=== PATIENT | female | born 1960 | race Caucasian/White ===

== ENCOUNTER 2024-08-20 17:11 | Emergency (ER) | payer OTHER, SELFPAY ==
[2024-08-20] VITALS (43 sets, daily range): BP systolic 90–178; BP diastolic 51–100; PULSE 58–77; RESP 9–35; TEMP 36.6; O2SAT 91–100
--- NOTE | 2024-08-20 17:21 | DI.RAD.S_ITS ---
PROCEDURE: XR TIBIA FUBULA RT 2V INDICATIONS: obvious deformity right ankle TECHNIQUE: 2 views of the tibia and fibula were acquired. COMPARISON: None. FINDINGS: Bones: Diffuse osteopenia. Visualized portions of the right knee appear intact. Degenerative changes of the right knee. Fracture dislocation of the distal fibula and tibia with lateral dislocation of the talus relative to the tibiotalar joint. There is disruption of the ankle mortise. There is a suspected fracture of the posterior calcaneus. Medial malleolar fracture. Soft tissues: No suspicious soft tissue calcifications or masses. IMPRESSION: Fracture, dislocation of the right ankle with lateral dislocation of the talus relative to the tibiotalar joint. There is disruption of the ankle mortise. Fractures of the lateral and medial malleolus. Suspected fracture of the posterior calcaneus. Dictated by: Malik Newsome M.D. on 08/20/2024 at 18:56 Approved by: Malik Newsome M.D. on 08/20/2024 at 18:58
--- NOTE | 2024-08-20 17:21 | DI.RAD.S_ITS ---
PROCEDURE: XR ANKLE RT MIN 3V INDICATIONS: obvious deformity right ankle TECHNIQUE: 3 views of the ankle were acquired. COMPARISON: None. FINDINGS: Bones: Diffuse osteopenia. Fracture dislocation of the distal right fibula and tibia. The talus is displaced laterally. Medial malleolar fracture. Possible fracture of the posterior calcaneus. Soft tissues: No tibiotalar joint effusion. Achilles tendon appears normal. IMPRESSION: Fracture dislocation of the right ankle with fractures involving the distal right fibula and medial malleolus. Lateral dislocation of the talus relative to the distal tibia. There is disruption of the ankle mortise. Possible fracture of the calcaneus. Dictated by: Malik Newsome M.D. on 08/20/2024 at 18:42 Approved by: Malik Newsome M.D. on 08/20/2024 at 18:44
--- NOTE | 2024-08-20 18:51 | ED.LOWEXIN ---
HPI - Extremity Injury (Lower) General Chief Complaint: Extremity Injury, Lower Stated Complaint: R ankle Fx Time Seen by Provider: 08/20/24 18:51 Source: EMS Mode of arrival: EMS History of Present Illness HPI Narrative: 63-year-old female history of diabetes, prior KELLY, dementia who presents with complaint of right ankle pain after a ground level fall. Patient currently lives in a memory care facility. Patient main complaint is her IV but does have pain in her ankle. She denies any other injuries or pain. She was alert, oriented can tell me her name. Denies any headache, no back pain, no chest pain or shortness of breath denies any other GI or urinary symptoms. She does not think that she was any allergies to medications. She denies any numbness or tingling in her foot. She was able to wiggle her toes. She does not recall the exact mechanism. Also spoke with the patient's ex- who is also her DPOA she was EN route but had [place] the [place]. Gives verbal permission for procedural sedation and reduction. Related Data Previous Rx's Medication Instructions Recorded hydrocodone 5 mg-acetaminophen 325 1 tab PO Q6H PRN pain #10 tabs 08/20/24 mg tablet Allergies Allergy/AdvReac Type Severity Reaction Status Date / Time bee pollen Allergy Verified 08/20/24 17:20 Review of Systems Review of Systems ROS Unobtainable: All systems reviewed & are unremarkable except as noted in HPI and below Exam Narrative Exam Narrative: GEN: Patient appears in mild distress. She was alert, oriented to self. Conversant but confused. HEAD: No evidence of trauma, no raccoon/[place]a sign. NECK: Nontender, painless range of motion, trachea midline Negative Nexus criteria, no mental line tenderness, distracting injury, altered mental status, neuro deficit, recent EtOH. EYES: PERRLA, EOMI ENT: External inspection normal, trachea is midline, TM's are normal no hemotypanum, Nares are clear, no septal hematoma, no dental or oral injury, airway is normal and with normal occlusion, No bony tenderness RESP: Chest is nontender and has symmetric movement, no ecchymosis, breath sounds are normal no crackles, wheezes or rales CVS: Heart sounds are normal, no murmur noted, No JVD. ABG/GI: Nontender, soft, normal bowel sounds, no distention, no organomegaly, pelvic rock is negative NEURO: neuro is grossly intact, sensation and motor is normal all 4 extremities moving, cranial nerves II through XII are intact. PSYCH: Normal mood and affect SKIN: Intact, warm and dry, no crepitus and without decubitus BACK: No CVA tenderness, no vertebral tenderness, no step-off's, no crepitus EXT: Patient has a obvious deformity of the right ankle with eversion, there has not abrasion over the medial ankle, tenting, no other bony tenderness to the toes. No bony tenderness of the ankle or hip. Patient does have a palpable pulse at dorsalis. Sensation is intact. She can wiggle all of her toes. No pain in the knee, hip. Patient has good range of motion of all of her other extremities. Hips are nontender, no pedal edema, normal color and temperature. Initial Vital Signs Initial Vital Signs: Vital Signs Temperature 97.8 F 08/20/24 17:16 Pulse Rate 59 L 08/20/24 17:16 Respiratory Rate 12 08/20/24 17:16 Blood Pressure 149/70 H 08/20/24 17:16 Pulse Oximetry 99 08/20/24 17:16 Oxygen Delivery Method Room Air 08/20/24 17:16 Procedures Orthopedic Fracture Reduction Fracture #1: Time Out Performed: Yes Side: right Fracture Reduction Location: other (ankle) Analgesia: procedural sedation Technique: direct manipulation and traction/counter-traction Post-reduction neuro exam: intact and no change Post-reduction vascular exam: intact and no change Splint Applied: Yes Patient Tolerated Procedure: Well and No complications Additional Comments: Patient had talus still too posterior. Patient had a repeat procedural sedation and had splint replaced by myself and nursing after direct manipulation improvement in imaging she was also reviewed with the orthopedic surgery. Procedural Sedation Consent signed: No Time out performed: Yes ASA Class: II Mallampati Airway Classification: Class II Time of Last PO Intake: 15:00 (pt unsure has dementia) Preparation: case monitor applied, pulse oximeter, capnometry used, supplemental O2 applied, suction/airway equipment at bedside and IV secured IV Propofol dose (mg): 40 ED Sedation Level: Moderate (Concious) Patient Tolerated Procedure: Well and No complications Complications: none Additional Comments: Patient had verbal consent from her DPOA Ciera to patient has pretty severe dementia. Her DPOA is EN route but not here currently. Patient had to have 2nd procedural sedation, she had returned to baseline in between had an additional 40mg and then additional 20mg for total of 60mg with second sedation. After consent from her DPOA who had arrived by that time. Patient had moderate sedation. No complications. Patient was on monitor with pulse oximetry, capnography, supplemental O2 and suction and airway equipment at bedside and IV was secured. Course Orders Ordered: ED Orders 08/20/24 19:53 XR ankle RT min 3V Stat 08/20/24 21:49 XR ankle RT 2V Stat 08/20/24 22:01 CT LE RT wo con Stat 08/20/24 23:35 Consult to [facility] - Clinical Nurse Reviewer Stat Discontinued Medications Propofol (Propofol 200 Mg/20 Ml Vial) 65 mg 1 mg/kg (65 mg) IV NOW ONE Stop: 08/20/24 18:56 Last Admin: 08/20/24 19:33 Dose: 40 mg Documented By: AMAUYR Propofol (Propofol 200 Mg/20 Ml Vial) 65 mg 1 mg/kg (65 mg) IV NOW ONE Stop: 08/20/24 20:58 Last Admin: 08/20/24 21:54 Dose: 60 mg Documented By: AMAURY Vital Signs Vital signs: Vital Signs - 8 hr 08/20/24 19:55 08/20/24 19:55 08/20/24 20:00 Pulse Rate 60 Respiratory Rate 11 L Blood Pressure 143/76 H 136/77 Pulse Oximetry 100 Oxygen Delivery Method 08/20/24 20:00 08/20/24 20:05 08/20/24 20:05 Pulse Rate 61 65 Respiratory Rate 10 L 22 Blood Pressure 150/81 H Pulse Oximetry 100 100 Oxygen Delivery Method 08/20/24 20:10 08/20/24 20:15 08/20/24 20:18 Pulse Rate 64 65 Respiratory Rate 13 18 Blood Pressure 171/77 H Pulse Oximetry 100 100 Oxygen Delivery Method 08/20/24 20:18 08/20/24 20:20 08/20/24 20:25 Pulse Rate 65 62 63 Respiratory Rate 16 10 L 16 Blood Pressure Pulse Oximetry 100 100 100 Oxygen Delivery Method 08/20/24 20:30 08/20/24 20:30 08/20/24 20:35 Pulse Rate 64 70 Respiratory Rate 14 21 Blood Pressure 172/81 H Pulse Oximetry 100 99 Oxygen Delivery Method 08/20/24 20:37 08/20/24 20:42 08/20/24 20:43 Pulse Rate 67 76 Respiratory Rate 18 Blood Pressure 174/87 H Pulse Oximetry 100 100 Oxygen Delivery Method 08/20/24 20:45 08/20/24 20:45 08/20/24 20:50 Pulse Rate 66 66 Respiratory Rate 10 L 18 Blood Pressure 178/79 H Pulse Oximetry 98 100 Oxygen Delivery Method 08/20/24 20:55 08/20/24 21:00 08/20/24 21:00 Pulse Rate 62 66 Respiratory Rate 16 21 Blood Pressure 176/82 H Pulse Oximetry 99 100 Oxygen Delivery Method 08/20/24 21:05 08/20/24 21:10 08/20/24 21:15 Pulse Rate 63 62 60 Respiratory Rate 15 12 20 Blood Pressure Pulse Oximetry 99 99 98 Oxygen Delivery Method 08/20/24 21:15 08/20/24 21:20 08/20/24 21:25 Pulse Rate 63 61 Respiratory Rate 20 13 Blood Pressure 171/79 H Pulse Oximetry 100 100 Oxygen Delivery Method 08/20/24 21:30 08/20/24 21:30 08/20/24 21:30 Pulse Rate 60 60 Respiratory Rate 18 11 L Blood Pressure 168/81 H 168/81 H Pulse Oximetry 98 100 Oxygen Delivery Method 08/20/24 21:35 08/20/24 21:35 08/20/24 21:35 Pulse Rate 61 64 Respiratory Rate 14 35 H Blood Pressure 150/86 H 151/100 H Pulse Oximetry 100 100 Oxygen Delivery Method 08/20/24 21:40 08/20/24 21:40 08/20/24 21:41 Pulse Rate 58 L 60 Respiratory Rate 13 12 Blood Pressure 135/89 135/89 Pulse Oximetry 100 100 Oxygen Delivery Method 08/20/24 21:45 08/20/24 21:45 08/20/24 21:45 Pulse Rate 64 60 Respiratory Rate 14 15 Blood Pressure 129/68 129/68 Pulse Oximetry 99 100 Oxygen Delivery Method 08/20/24 21:50 08/20/24 21:55 08/20/24 22:00 Pulse Rate 65 64 60 Respiratory Rate 22 Blood Pressure Pulse Oximetry 99 Oxygen Delivery Method 08/20/24 22:01 08/20/24 22:01 08/20/24 22:04 Pulse Rate 60 Respiratory Rate Blood Pressure 90/51 L 94/69 Pulse Oximetry Oxygen Delivery Method 08/20/24 22:04 08/20/24 22:05 08/20/24 22:10 Pulse Rate 61 60 77 Respiratory Rate 19 18 Blood Pressure Pulse Oximetry 93 100 100 Oxygen Delivery Method 08/20/24 22:15 08/20/24 22:21 08/20/24 22:23 Pulse Rate 64 70 70 Respiratory Rate 16 22 19 Blood Pressure Pulse Oximetry 100 91 Oxygen Delivery Method 08/20/24 22:23 08/20/24 22:25 08/20/24 22:30 Pulse Rate 63 Respiratory Rate 21 Blood Pressure 156/74 H 168/88 H Pulse Oximetry 99 Oxygen Delivery Method 08/20/24 22:30 08/20/24 22:35 Pulse Rate 63 70 Respiratory Rate 15 Blood Pressure Pulse Oximetry 100 100 Oxygen Delivery Method Room Air MDM - Extremity Injury (Lower) Lab Data Labs: Point of Care Testing Glucose POC 102 MDM Narrative Medical decision making narrative: Right tib-fib shows fracture dislocation right ankle with lateral dislocation of the talus relative to the tibiotalar joint disruption the ankle mortise fractures lateral medial malleolus suspected fracture of the posterior calcaneus. Ankle x-ray shows fracture dislocation right ankle infectious involving distal right fibula and medial malleolus lateral displaced in the talus relative distal tibia disrupted ankle mortise possible fracture of the calcaneus. Postreduction ankle x-ray talus still little bit posterior, was repeated after 3rd reduction with the interventional reduction decreased angulation noted in the anterior view persistent apex medial angulation frontal view with foreshortening of the fibula. CT lower extremity shows trimalleolar ankle fracture dislocation with a comminuted calcaneal fracture. Obtain verbal consent from patient's DPOA for procedural sedation and reduction as patient is fairly demented difficult for her to consent for herself although she does verbally consent. Patient had repeat procedural sedation which he tolerated well. Spoke with Dr. Gardner orthopedic surgery @ 2031 he reviewed pre and postreduction films patient has improvement but talus is still little bit too posterior asked if we can a re-attempt reduction. Patient did tolerate well here in the department. We will repeat imaging after 2nd reduction and touch base with Dr. Gardner. He notes she will need a CT afterwards as well. Re-contacted Dr. Gu he reviewed all the patient's imaging, post reduction. CT LE for surgical planning with outpatient follow up. Patient does have a history of diabetes point of care glucose was appropriate. Patient is feeding after her procedural sedation. Patient lives in a memory care unit, her DPOA arrived. They are concerned about her returning to her facility and prefer to take her home as they feel they are not managing her insulin and glucose appropriately. Discussed can have [facility] reach out tomorrow to see about assistance with reaching out to other facilities. Was also given contact information for the imaging department to have her CTs pushed tomorrow as CT was still being read and they prefer not to wait for final read. To give a short course of narcotic pain medication but noted that this can increase confusion as well as increased fall risk. Patient was also provided with a walker here. Pain is very well controlled without any pain medication here and patient's moved with minimal assistance although she is quite forgetful about her broken ankle. All questions answered. Discharge Plan Departure Patient Disposition: Home Clinical Impression: Ankle fracture, right Instructions: DI for Ankle Fracture Activity Restrictions/Additional Instructions: Call tomorrow morning to set up follow up with Orthopedic surgery. Sushila we will require surgical repair of her ankle fracture. Contact is included below. You can do acetaminophen up to a 1000 mg every 6 hours as needed for pain. Can give [place] 1-2 tablets every 6 hours as needed for pain management if necessary. This medication can make you sleepy do not drive, perform hazardous activities or make any major decisions while taking it. This medication will make you constipated please take a stool softener once to twice daily until stools are soft and regular. Prescription was sent to [facility] pharmacy in [place] on [address]. Toe-touch weight-bearing as tolerated. Encourage use of walker. Splint Care: Keep splint clean and dry. Elevated affected body part to decrease swelling. OK to use ice pack on the affected body part. Use for 15-20 minutes each time, for 5-6x per day. If you develop worsening pain, numbness, tingling, discoloration of the affected body part, loosen the splint by loosening the RAINA wrap, and either see your doctor for an urgent re-assessment, or return to the Emergency Department. Return to the Emergency Department for any new or worsening symptoms. Prescriptions: New hydrocodone-acetaminophen 5-325 mg tablet 1 tab PO Q6H PRN (Reason: pain) Qty: 10 0RF Referrals: Raulito Gardner MD [Physician] - Stand Alone Forms: Patient Portal/API/Survey
[2024-08-20] MEDS: propofoL 200 MG/20 ML VIAL 65 MG IV ×2 (19:33→21:54)
--- NOTE | 2024-08-20 19:53 | DI.RAD.S_ITS ---
PROCEDURE: XR ANKLE RT MIN 3V INDICATIONS: post reduc TECHNIQUE: 4 views of the ankle were acquired. COMPARISON: [facility], CR, XR ANKLE RT MIN 3V, 08/20/2024, 17:17. FINDINGS/IMPRESSION: Interval reduction and casting. Improved tibiotalar alignment on the frontal view, with persistent apex anterior angulation on the lateral view. There is persistent foreshortening of the lateral malleolus and displacement of the medial malleolus. Dictated by: Kendell Vu M.D. on 08/20/2024 at 20:13 Approved by: Kendell Vu M.D. on 08/20/2024 at 20:14
--- NOTE | 2024-08-20 21:49 | DI.RAD.S_ITS ---
PROCEDURE: XR ANKLE RT 2V INDICATIONS: reduction TECHNIQUE: 2 views of the ankle were acquired. COMPARISON: [facility], CR, XR ANKLE RT MIN 3V, 08/20/2024, 19:31. [facility], CR, XR ANKLE RT MIN 3V, 08/20/2024, 17:17. FINDINGS/IMPRESSION: Interval reduction. Decreased angulation noted on the anterior view. Persistent apex medial angulation on the frontal view with foreshortening of the fibula. Dictated by: Kendell Vu M.D. on 08/20/2024 at 22:01 Approved by: Kendell Vu M.D. on 08/20/2024 at 22:02
--- NOTE | 2024-08-20 22:01 | DI.CT.S_ITS ---
PROCEDURE: CT LE RT WO CON INDICATIONS: R ankle fracture TECHNIQUE: Noncontrast 1-1.5 mm axial sections acquired from above the tibiotalar joint to the bottom of the calcaneus, with coronal and sagittal reformats. COMPARISON: [facility], CR, XR ANKLE RT 2V, 08/20/2024, 21:36. [facility], CR, XR ANKLE RT MIN 3V, 08/20/2024, 19:31. [facility], CR, XR ANKLE RT MIN 3V, 08/20/2024, 17:17. FINDINGS: Image quality: Excellent. Bones: Casting material. Comminuted calcaneal fracture with depression. Talus appears intact. There is abnormal talar tilt. Talus is displaced laterally in relation to the tibia. Comminuted fracture of the medial malleolus with lateral displacement. Small fracture fragments. Small posterior malleolus fracture. Comminuted fracture of the distal fibula with lateral displacement. Fracture at or just above the syndesmosis. Small fracture fragments. No suspicious osseous lesion. Soft tissues: Tibiotalar joint effusion. Soft tissue edema. Arterial vascular calcifications. IMPRESSION: Trimalleolar ankle fracture dislocation. Comminuted calcaneal fracture. Dictated by: Satya Wall M.D. on 08/21/2024 at 0:13 Approved by: Satya Wall M.D. on 08/21/2024 at 0:21
--- NOTE | 2024-08-21 15:48 | CM.SWNOTE ---
ED PLACEMENT SECRETARY Follow Up Note PLACEMENT SECRETARY receives follow up consult regarding patient's current living situation and recent ankle fracture. PLACEMENT SECRETARY reviews EMR, it is reported that patient was recommended to follow up with Ortho, patient discharged with DPOA, patient was previously living at [facility]. Per DPOA, it was reported that patient could not return to [facility] so DPOA took patient home. PLACEMENT SECRETARY calls [facility]HMET/[facility]CS case assistant and leaves VM regarding patient's current situation. PLACEMENT SECRETARY calls [facility]ging and Disability, it is reported that patient's case assistant is Marlena (Ph. # [phone]), per DPOA patient's case manger is Jada dash (Ph.# [phone]) PLACEMENT SECRETARY calls both caseworker and leaves VM. PLACEMENT SECRETARY calls Patient's DPOA Sonia, it is reported that Ortho called DPOA this morning and recommended that patient return to the ED today due to concern for patient's fracture and need for higher level of care. DPOA states that patient has been resting and eating. It is reported that patient has not been able to ambulate with crutches or FWW and DPOA had to carry patient. PLACEMENT SECRETARY encourages DPOA to follow Ortho provider's instructions and call for an ambulance if needed. DPOA states she is in [place], PLACEMENT SECRETARY states that if she goes to the closest ED that they can request medical records from . PLACEMENT SECRETARY encourages DPOA to contact [facility] caseworker regarding current situation as well. Plan: DPOA to seek emergent medical attention for patient today per Ortho provider recommendations, [facility] caseworker to f/u with DPOA for LTC planning. Jada Sandhu, SENIOR WIND ENER[employer] CONSULTANT
== END 2024-08-21 00:36 | disposition home or self-care (01) ==
PROVIDERS: Emergency Provider Emergency Medicine
DX: S82.851A Displaced trimalleolar fracture of right lower leg, initial encounter for closed fracture (principal); S92.001A Unspecified fracture of right calcaneus, initial encounter for closed fracture; S93.04XA Dislocation of right ankle joint, initial encounter; F03.90 Unspecified dementia, unspecified severity, without behavioral disturbance, psychotic disturbance, mood disturbance, and anxiety; E11.9 Type 2 diabetes mellitus without complications; W18.30XA Fall on same level, unspecified, initial encounter
CPT/HCPCS: 27818; 73590; 73600; 73610; 73700; 82962; 99152; 99284; J2704

== ENCOUNTER 2024-08-21 17:20 | Emergency (ER) | payer OTHER, SELFPAY ==
[2024-08-21 17:26] VITALS: BP 149/110; PULSE 76; RESP 16; TEMP 36.4; O2SAT 100; BMI 22.0
--- NOTE | 2024-08-21 17:44 | DI.RAD.S_ITS ---
PROCEDURE: XR CHEST 1V INDICATIONS: Pre op patient for surgical TECHNIQUE: One view of the chest was acquired. COMPARISON: [facility], CR, XR ANKLE RT 2V, 08/20/2024, 21:36. FINDINGS: Surgical changes and devices: Right shoulder ORIF. Lungs and pleura: Lungs are clear. No pleural effusions or pneumothorax. Mediastinum: Mediastinal contours appear normal. Heart size is normal. I Bones and chest wall: No suspicious bony lesions. Overlying soft tissues appear unremarkable. IMPRESSION: No acute cardiopulmonary abnormality is seen. Comment: Film is labeled wrong. The ED provider checked the patient and noted that the previous surgery was on the RIGHT proximal humerus, which is labeled as LEFT on the x-ray. There is no site is in versus. Dictated by: Kareem Yao M.D. on 08/21/2024 at 19:03 Approved by: Kareem Yao M.D. on 08/21/2024 at 19:10
--- NOTE | 2024-08-21 18:37 | ED.RECABL ---
HPI - Recheck/Abnormal Lab/Rx General Chief Complaint: Recheck/Abnormal Lab/Rx Stated Complaint: Sent by PCP abnormal CT Time Seen by Provider: 08/21/24 18:37 Source: patient, RN notes reviewed and old records reviewed Mode of arrival: Ambulatory Limitations: no limitations History of Present Illness HPI narrative: 63-year-old female history of diabetes, prior KELLY, dementia was seen here last night with right ankle fracture had reduction in the emergency department reviewed with Orthopedic surgery patient was discharged home with her DPOA rather than being returned to her memory care unit at their request. Patient re-presents after being contacted by Orthopedic surgery saying that she likely needs transfer to higher level of care. Patient is accompanied by her DPOA/ex- Ciera. Had a [place] about 2 hours prior to evaluation pain is well controlled at this time. Patient currently has not no complaints. She was alert, oriented herself conversant. Related Data Previous Rx's Medication Instructions Recorded hydrocodone 5 mg-acetaminophen 325 1 tab PO Q6H PRN pain #10 tabs 08/20/24 mg tablet Allergies Allergy/AdvReac Type Severity Reaction Status Date / Time bee venom protein (honey bee) Allergy Anaphylaxis Verified 08/21/24 17:35 Review of Systems Review of Systems ROS Unobtainable: All systems reviewed & are unremarkable except as noted in HPI and below Patient History Social History Smoking Status: Never smoker Smoking Status: Never smoker Exam Narrative Exam Narrative: GENERAL: Alert and oriented x three, HEENT: Head normocephalic, atraumatic, EOMI, pupils reactive, face symmetric, moist mucous membranes NECK: Supple, full range of motion CARDIOVASCULAR: Regular rate and rhythm without murmurs, rubs or gallops. RESPIRATORY: Breath sounds equal bilaterally, no wheezes rales or rhonchi. ABDOMEN: Soft, nontender. Normoactive bowel sounds all 4 quadrants. No guarding or rebound, rigidity, no mass : No CVA tenderness EXTREMITIES: Normal range of motion, no clubbing or edema. Neurovascularly intact. Patient has has posterior and stirrup splint on the left foot. Patient is neurovascularly intact no swelling of the toes no redness or warmth. Patient has pink controlled as currently. NEUROLOGICAL: Cranial nerves II through XII grossly intact. Moving all extremities SKIN: Warm, dry, no petechiae, no rashes or lesions. Initial Vital Signs Initial Vital Signs: Vital Signs Temperature 97.6 F 08/21/24 17:26 Pulse Rate 76 08/21/24 17:26 Respiratory Rate 16 08/21/24 17:26 Blood Pressure 149/110 H 08/21/24 17:26 Pulse Oximetry 100 08/21/24 17:26 Oxygen Delivery Method Room Air 08/21/24 17:26 Course Orders Ordered: ED Orders 08/21/24 19:08 CBC Auto Diff [Complete Blood Count AUTO DIFF] Stat CMP [Comprehensive Metabolic Panel] Stat Prothrombin Time INR Stat 08/21/24 19:35 Urine Culture Stat Urine Microscopic Stat Vital Signs Vital signs: Vital Signs - 8 hr 08/21/24 21:45 Pulse Rate 78 Respiratory Rate 16 Blood Pressure 105/55 L Pulse Oximetry 98 MDM - Recheck/Abnormal Lab/Rx Lab Data 08/21/24 19:08 08/21/24 19:08 Labs: Lab Results 08/21/24 08/21/24 Range/Units 19:08 19:35 WBC 8.6 (4.5-11.0) X10^3/uL RBC 3.13 L (4.0-5.2) X10^6/uL Hgb 9.7 L (12.0-16.0) g/dL Hct 28.9 L (36-46) % MCV 92.5 (80-100) fL MCH 31.0 (26-34) PG MCHC 33.5 (30-36) % RDW 13.6 (11.6-14.8) % Plt Count 222 (150-400) X10^3/uL Neut % (Auto) 81.6 H (50-75) % Lymph % (Auto) 10.3 L (25-40) % [place] % (Auto) 7.2 (3-14) % Eos % (Auto) 0.4 L (2-4) % Baso % (Auto) 0.5 (0-2) % Neut # (Auto) 7000 (7820-5216) /uL Lymph # (Auto) 900 L (9580-5873) /uL [place] # (Auto) 600 (0-900) /uL Eos # (Auto) 0 (0-450) /uL Baso # (Auto) 0 (0-100) /uL PT 11.1 (9.4-12.5) SECONDS INR 1.0 (0.9-1.3) Sodium 135 L (137-145) mmol/L Potassium 4.0 (3.4-5.1) mmol/L Chloride 105 (98-107) mmol/L Carbon Dioxide 22 (22-32) mmol/L BUN 40 H (7-17) mg/dL Creatinine 2.08 H (0.52-1.04) mg/dL Estimated GFR 26 L (>60) mL/min BUN/Creatinine Ratio 19.2 (6-22) Glucose 164 H (70-99) mg/dL Calcium 9.0 (8.4-10.2) mg/dL Total Bilirubin 0.7 (0.2-1.3) mg/dL AST 31 (14-36) IU/L ALT 30 (<35) IU/L Alkaline Phosphatase 79 (38-126) U/L Total Protein 6.7 (6.3-8.2) g/dL Albumin 3.9 (3.5-5.0) g/dL Globulin 2.8 (1.7-4.1) g/dL Albumin/Globulin Ratio 1.4 (1.0-2.8) Urine RBC 0-1/hpf (0-5/HPF) Urine WBC 0-1/hpf (0-5/HPF) Ur Squamous Epith Cells 1-5 /hpf (0-5/HPF) Urine Bacteria None seen (None) Hyaline Casts 0-1/lpf (None) Ur Culture Indicated? Vol Urine Centrifuged 10ml (spun) Urine Dip Bedside Urine Glucose Negative Bedside Urine Bilirubin - Negative Bedside Urine Ketone - Negative Urine Specific [place] 1.020 Bedside Urine Occult Blood - Negative Bedside Urine pH 5.5 Bedside Urine Protein +/- 15 Bedside Urine Urobilinogen +/- 1mg Bedside Urine Nitrite - Negative Bedside Urine Leukocytes - Negative Esterase MDM Narrative Medical decision making narrative: 63-year-old female known history of diabetes on insulin, prior KELLY, significant dementia. Patient had attempted reduction last night with improvement of alignment, had CT afterwards. Plan was to follow up with Orthopedic surgery locally although family elected to take her home to [place] rather than back to her memory care. They were contacted by Orthopedic surgery this morning and told that she will need a high level of care. Labs white count 8.6 hemoglobin of 9.7 platelets of 222, INR 1, chemistries shows sodium 135 BUN of 40 creatinine 208, GFR 26 family had noted she was had decreased kidney function, glucose of [address] LE-trimalleolar ankle fracture dislocation, comminuted calcaneal fracture. Talus appears intact. Abnormal talar tilt. Talus is displaced laterally inhalation of the tibia. Comminuted fracture of the medial malleolus with lateral displacement. Small fracture fragments. Small posterior malleolus fracture. Community fracture distal fibula lateral displacement. Fracture or just above the syndesmosis. Small fracture fragments. No suspicious osseous lesions. Chest x-ray mislabeled. No acute cardiopulmonary abnormality, film is labeled wrong. I did check the patient myself they are prior surgeries on the right proximal humerus there is a scar in the right proximal humerus on exam and none on the left. Spoke with Dr. Gardner Orthopedic surgery he had reviewed patient's CT today realize had pretty significant calcaneal fracture as well patient likely needs higher level of care they were asked to return for transfer. Notes [facility] would be potential choice and or [facility]. Spoke with patient and DPOA they would like to try and save [facility] has capacity and if not we will go with the [facility]. [facility]/Matt spoke with Dr. Ochoa trauma team accepts for transfer. Will do ED to ED transfer. Spoke with ED attending Dr. Gross is the accepting physician. May go ahead and send to ED. BLS transport. Patient's DPOA at bedside agreeable with transfer. All questions answered. Discharge Plan Departure Patient Disposition: [facility] Clinical Impression: Closed trimalleolar fracture of ankle, Calcaneal fracture, Fall Prescriptions: No Action hydrocodone-acetaminophen 5-325 mg tablet 1 tab PO Q6H PRN (Reason: pain) Qty: 10 0RF
[2024-08-21 19:15] LABS: Add Manual Diff / Slide Review NO; Basophils Absolute Auto 0 /uL (0-100); Basophils Percent Auto 0.5 % (0-2); Eosinophils Absolute Auto 0 /uL (0-450); Eosinophils Percent Auto 0.4 % (2-4); Hematocrit 28.9 % (36-46); Hemoglobin 9.7 g/dL (12.0-16.0); Lymphocytes Absolute Auto 900 /uL (1100-4500); Lymphocytes Percent Auto 10.3 % (25-40); Mean Corpuscular HGB Conc 33.5 % (30-36); Mean Corpuscular Volume 92.5 fL (80-100); Monocytes Absolute Auto 600 /uL (0-900); Monocytes Percent Auto 7.2 % (3-14); Neutrophils Absolute Auto 7000 /uL (1500-7000); Neutrophils Percent Auto 81.6 % (50-75); Platelet Count 222 X10^3/uL (150-400); Red Blood Cell Count 3.13 X10^6/uL (4.0-5.2); Red Cell Distribution Width 13.6 % (11.6-14.8); White Blood Cell Count 8.6 X10^3/uL (4.5-11.0)
[2024-08-21 19:22] LABS: Prothrombin Time 11.1 SECONDS (9.4-12.5)
[2024-08-21 19:25] LABS: Alanine Aminotransferase 30 IU/L (<35); Albumin 3.9 g/dL (3.5-5.0); Albumin Globulin Ratio 1.4 (1.0-2.8); Alkaline Phosphatase 79 U/L (38-126); Aspartate Aminotransferase 31 IU/L (14-36); BUN Creatinine Ratio 19.2 (6-22); Bilirubin Total 0.7 mg/dL (0.2-1.3); Blood Urea Nitrogen 40 mg/dL (7-17); Carbon Dioxide 22 mmol/L (22-32); Chloride 105 mmol/L (98-107); Estimated Glomerular Filt Rate 26 mL/min (>60); Globulin 2.8 g/dL (1.7-4.1); Glucose 164 mg/dL (70-99); HEMOLYSIS < 15 (0-50); Sodium 135 mmol/L (137-145); Total Protein 6.7 g/dL (6.3-8.2)
[2024-08-21 20:00] LABS: Bacteria Urine None Seen; RBC Urine 0-1/HPF (0-5/HPF); Squamous Epithelial Cell Urine 1-5 /HPF (0-5/HPF); Urine Volume 10mL (spun); WBC Urine 0-1/HPF (0-5/HPF)
[2024-08-21 20:01] LABS: Hyaline Casts Urine 0-1/LPF
[2024-08-21 21:45] VITALS: BP 105/55; PULSE 78; RESP 16; O2SAT 98
== END 2024-08-21 21:59 | disposition short-term general hospital (02) ==
PROVIDERS: Emergency Medicine; Emergency Provider Emergency Medicine
DX: S82.851A Displaced trimalleolar fracture of right lower leg, initial encounter for closed fracture (principal); S92.001A Unspecified fracture of right calcaneus, initial encounter for closed fracture; W01.10XA Fall on same level from slipping, tripping and stumbling with subsequent striking against unspecified object, initial encounter
CPT/HCPCS: 36415; 71045; 80053; 81003; 81015; 85025; 85610; 87086; 99283; 99284